=== PATIENT | female | born 1990 | race Caucasian/White ===

== ENCOUNTER 2017-02-18 07:43 | Emergency (ER) | payer OTHER ==
[~2017-02-18] VITALS: Ht 157.5 cm; Wt 68.5 kg
[2017-02-18 08:38] VITALS: BP 114/74
== END 2017-02-18 08:38 | disposition home or self-care (01) ==
LOC: ED 07:43
DX: J06.9 Acute upper respiratory infection, unspecified (principal); J02.9 Acute pharyngitis, unspecified

== ENCOUNTER 2018-06-15 21:57 | Emergency (ER) | payer OTHER ==
[~2018-06-15] VITALS: Ht 157.5 cm; Wt 66.7 kg
[2018-06-15 22:02] VITALS: Ht 157.5 cm; Wt 66.7 kg
[2018-06-15 23:16] LABS: UA SPECIFIC GRAVITY >=1.030 (1.005-1.035); microscopic required? YES; urine erythrocyte 3+ (NEGATIVE)
[2018-06-16 01:07] VITALS: BP 119/57
== END 2018-06-16 01:07 | disposition home or self-care (01) ==
LOC: ED 21:57
PROVIDERS: Emergency Medicine
DX: O20.0 Threatened abortion (principal)
CPT/HCPCS: Q0092; Q0162